=== PATIENT | male | born 1960 | race Caucasian/White ===

== ENCOUNTER 2016-08-21 11:13 | Inpatient (IN) | payer OTHER ==
[~2016-08-21] VITALS: Ht 167.6 cm; Wt 74.1 kg
[2016-08-21] MEDS ORDERED: BELLADONNA/PHENOBARBITAL TAB PO STA (12:31)
[2016-08-21] MEDS ORDERED: LIDOCAINE/MYLANTA 40 ML BTL PO STA (12:31)
[2016-08-21] MEDS ORDERED: FAMOTIDINE 20 MG TAB PO STA (12:31)
[2016-08-21] MEDS ORDERED: SOD CHLORIDE 0.9% 1,000 ML IV STA (12:31)
[2016-08-21] MEDS ORDERED: morphine 4 MG/ML VIAL IV STA (12:31)
[2016-08-21] MEDS ORDERED: ONDANSETRON 4 MG INJ IV STA (12:31)
[2016-08-21 13:08] LABS: ALANINE AMINOTRANSFERASE 35 IU/L (13-69); ALBUMIN 4.6 g/dl (3.3-4.9); ALBUMIN/GLOBULIN RATIO 1.17; ALKALINE PHOSPHATASE 104 IU/L (42-121); ANION GAP 17 (8-16); ASPARTATE AMINO TRANSFERASE 28 IU/L (15-46); BILIRUBIN,INDIRECT 0.3 mg/dl (0-1.1); BILIRUBIN,TOTAL 0.3 mg/dl (0.2-1.3); BLOOD UREA NITROGEN 20 mg/dl (7-20); CALCIUM 10.1 mg/dl (8.4-10.2); CARBON DIOXIDE 26 mmol/L (21-31); CHLORIDE 102 mmol/L (97-110); CREATININE 0.64 mg/dl (0.61-1.24); GLUCOSE 128 mg/dl (70-220); POTASSIUM 3.4 mmol/L (3.5-5.1); SODIUM 142 mmol/L (135-144); TOTAL PROTEIN 8.5 g/dl (6.1-8.1)
[2016-08-21 13:22] LABS: ADD SCAN DIFF NO
[2016-08-21 13:24] LABS: TROPONIN-I < 0.012 ng/ml (0.00-0.12)
[2016-08-21 13:25] LABS: BASOPHILS % 0.2 % (0.0-2.0); EOSINOPHILS % 0.1 % (0.0-7.0); HEMATOCRIT 50.5 % (42.0-52.0); HEMOGLOBIN 17.2 g/dl (14.0-18.0); LYMPHOCYTES # 2.1 10^3/ul (0.8-2.9); LYMPHOCYTES % 17.3 % (15.0-51.0); MEAN CORPUSCULAR HEMOGLOBIN 30.4 pg (29.0-33.0); MEAN CORPUSCULAR HGB CONC 34.1 g/dl (32.0-37.0); MEAN CORPUSCULAR VOLUME 89.2 fl (82.0-101.0); MEAN PLATELET VOLUME 10.9 fl (7.4-10.4); MONOCYTE # 0.7 10^3/ul (0.3-0.9); NEUTROPHIL # 9.3 10^3/ul (1.6-7.5); PLATELET COUNT 325 10^3/UL (140-415); RED BLOOD COUNT 5.66 10^6/ul (4.70-6.10); RED CELL DISTRIBUTION WIDTH 12.5 % (11.5-14.5); WHITE BLOOD COUNT 12.2 10^3/ul (4.8-10.8)
--- NOTE | 2016-08-21 13:36 | RADRPT ---
PROCEDURE: CT abdomen and pelvis without contrast. CLINICAL INDICATION: Abdominal pain. TECHNIQUE: CT scan of the abdomen and pelvis without contrast was performed on a multi-slice [facility]. Sagittal and coronal reformatted images were obtained from the axial source images. One or more of the following dose reduction techniques were used: - Automated exposure control. - Adjustment of the mA and/or kV according to patient size. - Use of iterative reconstruction technique. DLP 641.1 mGycm. CTDIvol 11.4 mGy COMPARISON: None FINDINGS: The lung bases are clear. There is limited evaluation of the solid viscera from the lack of IV con trast. The kidneys are symmetric bilaterally with no evidence of renal or ureteral calculi. There is no hy dronephrosis or perinephric stranding. There is normal density of the liver with no gross focal lesion or biliary ductal dilatation. The gallbladder is unremarkable without inflammation. The spleen is unremarkable without mass. The adrenal glands are within normal limits without mass. The pancreas is unremarkable without focal lesion or surrounding inflammatory changes. There is no bowel obstruction or focal bowel inflammation. The appendix is unremarkable. There is diffuse diverticulosis without diverticulitis. There is no free air or free fluid. There are no en larged lymph nodes. There is aortic atherosclerosis without aneurysmal dilatation. Degenerative changes are seen in t he lumbar spine with no acute osseous abnormality. The prostate is mildly enlarged. There is a small fat containing left inguinal hernia. IMPRESSION: No evidence of renal or ureteral calculi or hydronephrosis. No evidence of bowel obstruction or inflammation. There is no appendicitis. There is diffuse diverti culosis without diverticulitis. Atherosclerotic disease is present. Prostatic enlargement. Small fat containing left inguinal hernia. RPTAT: AA .Nieves Medina MD, MD Date Time Electronically viewed and signed by .Nieves Medina MD, MD on 08/21/2016 13:35 .J/
--- NOTE | 2016-08-21 13:38 | RADRPT ---
PROCEDURE: CT brain without contrast CLINICAL INDICATION: Nausea, dizziness TECHNIQUE: CT of the brain without contrast performed on a multidetector CT scanner, with multiplan ar reformats. One or more of the following dose reduction techniques were used: Automated exposure control, adjustment in mA and / or kV according to patient size, use of iterative reconstructive flavia hnique. CTDIvol = 45 mGy; DLP = 720 mGy-cm. COMPARISON: None available FINDINGS: There are patchy areas of hypodensity in the left cerebellar hemisphere, and a small focal hypodensi ty in the right cerebellar vermian region. These are suggestive of infarcts which may be recent. N o acute intracranial hemorrhage is identified. No extra-axial fluid collection is seen. No significant mass effect or midline shift is identified. Ventricles and sulci are within normal limits for size and configuration. Otherwise gonzales-white differentiation is preserved. Atherosclerotic calcifications of the intracranial internal carotid arteries are noted. Osseous structures are unremarkable. Noted is severe right sphenoid sinus mucosal thickening with s ecretions. IMPRESSION: 1. Patchy left cerebellar hypodensities, and small right cerebellar hypodensity suggestive of infar cts which may be recent. Further evaluation with MRI is recommended. 2. No acute intracranial hemorrhage. Results called to Dr. HERNANDEZ at 01:35 p.m., 08/21/2016. RPTAT: HH .Wilfrido Aguila MD, Date Time Electronically viewed and signed by .Wilfrido Aguila MD, on 08/21/2016 13:38 .O/
[2016-08-21] MEDS ORDERED: ASPIRIN 325 MG TAB PO ONE (14:00)
--- NOTE | 2016-08-21 14:00 | ERA ---
ER Documentation Chief Complaint Date/Time DATE: 08/21/16 TIME: 13:50 Chief Complaint NAUSEA AND VOMITING WITH MILD AP AND DIZZINESS BUT NO NEURO DEFICIT. HPI 55-year-old man brought in by with complaints of dizziness, nausea, and intermittent vomiting 2 days. Patient states he has had difficulty ambulating and has been wobbling from side to side when trying to ambulate. He complains of a posterior headache worse on the left compared to the right. Patient also states he has had some abdominal cramping with emesis. He has had nonbloody nonbilious emesis, he denies chest pain or shortness of breath, no melena or blood per rectum, no recent travel, no slurred speech, no weakness in his arms or legs. ROS All systems reviewed and are negative except as per history of present illness. Medications Home Meds No Active Prescriptions or Reported Meds Allergies Allergies: Coded Allergies: No Known Allergy (Unverified , 08/21/16) PMhx/Soc None Medical and Surgical Hx: pt denies Medical Hx, pt denies Surgical Hx History of Surgery: No Anesthesia Reaction: No Hx Neurological Disorder: No Hx Respiratory Disorders: No Hx Cardiac Disorders: No Hx Psychiatric Problems: No Hx Miscellaneous Medical Probl: No Hx Alcohol Use: No Hx Substance Use: No Hx Tobacco Use: Yes Smoking Status: Never smoker FmHx Family History: No diabetes Physical Exam Vitals Vital Signs Date Time Temp Pulse Resp B/P Pulse Ox O2 Delivery O2 Flow Rate FiO2 08/21/16 12:57 75 17 177/94 99 Room Air 08/21/16 11:21 98.0 61 20 173/78 98 Physical Exam GENERAL: Well-developed, well-nourished, nauseous HEENT: Moist mucous membranes, pink conjunctiva, no cervical spine tenderness or step-off deformities, no goiter, no jaundice or icterus, extraocular movements intact without pain. No submandibular induration, and no pharyngeal erythema NEURO: Alert and oriented 3, cranial nerves II through XII intact bilaterally, pupils equal round reactive to light, no focal deficits or facial asymmetry, sensation intact distally, extraocular movements intact without difficulty, no nystagmus, no asterixis, vmux-ca-[id number] movements within normal limits bilaterally , finger to nose normal bilaterally, rapid alternating movements intact and normal bilaterally, gait not tested, no expressive dysarthria or dysphasia CARDIAC: Regular rate and rhythm, no murmurs rubs or gallops LUNGS: Clear bilaterally no wheezing crackles or stridor ABDOMEN: Soft nontender, no guarding, no rigidity, no rebound, no psoas sign no obturator sign. Normoactive bowel sounds SKIN: Warm and dry to touch, no abrasions, contusions, or hematomas, no lacerations, no ecchymosis, no target lesions, and without ulcers EXTREMITIES: No clubbing cyanosis or edema, calves are bilaterally symmetrical, no Homans sign, no popliteal cord sign. Distal pulses equal and bilateral PSYCH: Normal affect without agitation or irritability Result Diagram: 08/21/16 1231 08/21/16 1231 Results 24 hrs Laboratory Tests Test 08/21/16 12:31 White Blood Count 12.210^3/ul Red Blood Count 5.6610^6/ul Hemoglobin 17.2g/dl Hematocrit 50.5% Mean Corpuscular Volume 89.2fl Mean Corpuscular Hemoglobin 30.4pg Mean Corpuscular Hemoglobin Concent 34.1g/dl Red Cell Distribution Width 12.5% Platelet Count 38840^3/UL Mean Platelet Volume 10.9fl Neutrophils % 76.0% Lymphocytes % 17.3% Monocytes % 6.0% Eosinophils % 0.1% Basophils % 0.2% Nucleated Red Blood Cells % 0.0/100WBC Neutrophils # 9.310^3/ul Lymphocytes # 2.110^3/ul Monocytes # 0.710^3/ul Eosinophils # 0.010^3/ul Basophils # 0.010^3/ul Nucleated Red Blood Cells # 0.010^3/ul Prothrombin Time 12.4Sec Prothrombin Time Ratio 1.0 INR International Normalized Ratio 0.92 Sodium Level 142mmol/L Potassium Level 3.4mmol/L Chloride Level 102mmol/L Carbon Dioxide Level 26mmol/L Anion Gap 17 Blood Urea Nitrogen 20mg/dl Creatinine 0.64mg/dl Glucose Level 128mg/dl Calcium Level 10.1mg/dl Total Bilirubin 0.3mg/dl Direct Bilirubin 0.00mg/dl Indirect Bilirubin 0.3mg/dl Aspartate Amino Transf (AST/SGOT) 28IU/L Alanine Aminotransferase (ALT/SGPT) 35IU/L Alkaline Phosphatase 104IU/L Troponin I < 0.012ng/ml Total Protein 8.5g/dl Albumin 4.6g/dl Globulin 3.90g/dl Albumin/Globulin Ratio 1.17 Lipase 29U/L Current Medications Medications (Trade) Dose Ordered Sig/Kellie Route PRN Reason Start Time Stop Time Status Last Admin Dose Admin Sodium Chloride (NS) 1,000 ml @ 1,000 mls/hr Q1H STAT IV 08/21/16 12:31 08/21/16 13:30 DC 08/21/16 12:46 Morphine Sulfate (morphine) 4 mg ONCE STAT IV 08/21/16 12:31 08/21/16 12:33 DC 08/21/16 12:47 Ondansetron HCl (Zofran Inj) 4 mg ONCE STAT IV 08/21/16 12:31 08/21/16 12:33 DC 08/21/16 12:47 Famotidine (Pepcid) 40 mg ONCE STAT PO 08/21/16 12:31 08/21/16 12:33 DC 08/21/16 12:47 Miscellaneous Medication (Gi Cocktail (2)) 40 ml ONCE STAT PO 08/21/16 12:31 08/21/16 12:33 DC 08/21/16 12:50 Belladonna/ Phenobarbital () 2 tab ONCE STAT PO 08/21/16 12:31 08/21/16 12:33 DC 08/21/16 12:47 Aspirin 325 mg 325 mg ONCE ONCE PO 08/21/16 14:00 08/21/16 14:01 DC 08/21/16 14:20 Iohexol 100 ml @ ud STK-MED ONCE .ROUTE 08/21/16 14:23 08/21/16 14:24 DC Sodium Chloride (NS) 100 ml @ ud STK-MED ONCE .ROUTE 08/21/16 14:23 08/21/16 14:24 DC Procedures/MDM IV line established patient placed on nuclear monitoring technician rhythm strip revealed a sinus rhythm at about 70 bpm with upright P and T waves. Patient was afebrile. EKG performed, read by me revealed a sinus bradycardia 58 bpm, normal axis, narrow QRS complex, no concerning ST elevations or depressions noted. I administered 1 L normal saline intravenously, morphine 4 mg IV, Zofran 4 mg IV , GI cocktail 50 cc p.o., famotidine 40 mg p.o. with improvement in his symptoms. CT scan of the abdomen and pelvis was performed, given the patient's symptoms. There was no acute inflammatory or infectious pathology noted, vascular structures were unremarkable. Please refer radiologist's dictation for full report. CT scan of the brain was performed revealing acute versus subacute bilateral cerebellar infarcts left greater than right, no acute bleed mass or shift. Given the time of symptom onset patient is not a TPA candidate. Tele-neurologist consultation has been ordered. Recommendation was for CT angiogram of the neck. CBC was unremarkable, electrolytes revealed hypokalemia 3.4, liver function tests are normal, troponin was negative. Patient will be admitted to telemetry setting for continued medical management and neurology consultation. CTA of the neck was unremarkable, no carotid artery or vertebral artery occlusion. Patient was given aspirin 325 mg p.o. for neuroprotective measures. Departure Diagnosis: Primary Impression: Cerebellar stroke Additional Impressions: Ataxic gait Headache Qualified Code: G44.1 - Other vascular headache Condition: TATA Sahu MD August 21, 2016 14:00
[2016-08-21 14:13] LABS: INR 0.92; PROTIME 12.4 Sec (12.2-14.2)
[2016-08-21] MEDS ORDERED: IOHEXOL 100 ML ONE (14:23)
[2016-08-21] MEDS ORDERED: SOD CHLORIDE 0.9% 100 ML ONE (14:23)
--- NOTE | 2016-08-21 15:05 | CONS ---
DATE OF ADMISSION: 08/21/2016 DATE OF CONSULTATION: 08/21/2016 REASON FOR CONSULTATION: I was asked to see the patient for concern of stroke. HISTORY OF PRESENT ILLNESS: The patient arrived with 2 days' symptoms of ataxia, nausea and vomitin g. The patient had a noncontrast head CT which showed a left cerebellar infarction as well as devel oping infarcts in the anterior circulation of the subcortical matter. The patient is a poor histori an. There was no costume rental clerk present. The patient is not known to have any prior strokes. It is n ot clear why the patient came in today as opposed to the prior 2 days when he had symptoms. He is n ot known to have had any recent procedures, trauma, or operations, not clear if the patient was on a ntiplatelets. I was able to evaluate the patient with NIH stroke scale score. The patient was aler t. He is oriented. He is able to follow commands. He has no evidence of slurred speech. He does have some left-sided ataxia. The patient's sensation is grossly intact. The patient was not able t o be walked given the fact that there was no other personnel present during my assessment. I reviewed the patient's noncontrast head CT, demonstrated multifocal multivascular distribution for med infarcts on his CT scan. There was no posterior fossa mass effect, nor was there any concern fo r encroachment upon the fourth ventricle. ASSESSMENT: This is a gentleman who likely has vertebrobasilar disease that may be embolic in natur e. He should have an echocardiogram with a bubble study. He should have a CT angiogram to assess t he patency of his vertebrobasilar vasculature. The patient should be kept on telemetry to look for a source of cardiac emboli. The patient should be given aspirin. He should be hydrated. His blood pressure should be allowed to persist elevated unless it exceeds 220/110. The patient should have local neurologic consultation. If the patient has substantial findings of vertebrobasilar disease o n his medical coding manager circulation, he may be better served at a comprehensive stroke center. I have reported my findings and recommendations back to the emergency department team. Dictated By: DOLORES ROY CM/KENDALL Conf#: [id number] DID#: [id number]
--- NOTE | 2016-08-21 15:07 | RADRPT ---
PROCEDURE: CT angiogram neck CLINICAL INDICATION: Nausea, dizziness, cerebellar infarcts TECHNIQUE: CT angiogram of the brain, and neck was performed on a multidetector CT scanner. The chuck dy was reviewed on a [employer] PACS/3D workstation with 3D-MIP reformations. 75 cc Omnipaque 350 i ntravenous contrast were administered. One or more of the following dose reduction techniques were used: Automated exposure control, adjustment in mA and / or kV according to patient size, use of ite rative reconstructive technique. CTDIvol = 20 mGy and DLP = 538 mGy-cm. COMPARISON: CT brain 08/21/2016 FINDINGS: CT ANGIOGRAM NECK: Calcified plaques present at the great vessel origins without occlusion or signif icant stenosis identified. Noted is a common origin of the brachiocephalic, left common carotid art eries, normal variation. The bilateral common carotid arteries are patent. The bilateral carotid b ulbs - bifurcations are patent with minimal calcified plaque at the left carotid bulb and at the rig ht external carotid artery origin. There is calcified plaque at the proximal left internal carotid artery without occlusion, or stenosis by NASCET criteria identified and the rest of the bilateral in ternal carotid arteries are patent. The proximal bilateral vertebral arteries are tortuous without occlusion or significant stenosis identified. No dissection is identified. The bilateral intracranial internal carotid arteries, and imaged proximal basilar artery are patent. Also seen are atherosclerotic calcifications at the bilateral cavernous internal carotid arteries without occlusion or significant stenosis seen. IMPRESSION: No occlusion or significant stenosis identified. Specifically, no occlusion or significant stenosis of the vertebral arteries, or visualized proximal basilar artery. RPTAT: .Wilfrido Aguila MD, MD Date Time Electronically viewed and signed by .Wilfrido Aguila MD, MD on 08/21/2016 15:06 .O/
[2016-08-21 16:12] VITALS: Ht 167.6 cm; Wt 74.1 kg
[2016-08-21 16:23] VITALS: PULSE 67
[2016-08-21 18:26] VITALS: BP 152/74; PULSE 61; RESP 19
[2016-08-21] MEDS ORDERED: NACL 0.9% 3 ML SYG IV SCH (19:30)
[2016-08-21] MEDS ORDERED: ACETAMINOPHEN 325 MG TAB PO PRN (19:30)
[2016-08-21] MEDS ORDERED: ZOLPIDEM 5 MG TAB PO PRN (19:30)
[2016-08-21] MEDS ORDERED: ONDANSETRON 4 MG INJ IV PRN (19:30)
[2016-08-21] MEDS ORDERED: hydrALAzine 20 MG INJ IV PRN (19:30)
[2016-08-21] MEDS ORDERED: morphine 2 MG INJ IV PRN (19:30)
[2016-08-21] MEDS ORDERED: HYDROCODONE/APAP (5/325) TAB PO PRN (19:30)
[2016-08-21] MEDS ORDERED: DOCUSATE SODIUM 100 MG CAP PO PRN (19:30)
--- NOTE | 2016-08-21 19:31 | HP ---
DATE OF ADMISSION: 08/21/2016 CHIEF COMPLAINT: Nausea, vomiting, dizziness. HISTORY OF PRESENT ILLNESS: The patient is a 55-year-old male with no medical history. The patient presented with 2 days of worsening nausea with dizziness. The patient is unable to ambulate second uriah to his dizziness. He has no history of any cardiac issues or strokes in the past. In the ED, t he patient had a brain CT that showed a right cerebellar infarct. The patient was seen by teleneuro logy and they recommended a neck CTA, which showed no occlusion or significant stenosis. The patien t has no other complaints at this time. PAST MEDICAL HISTORY: Negative. The patient does not see any physicians. PAST SURGICAL HISTORY: Denies. HOME MEDICATIONS: None. ALLERGIES: NO KNOWN DRUG ALLERGIES. FAMILY HISTORY: Diabetes. SOCIAL HISTORY: Denies any alcohol or drug abuse. He does smoke several cigarettes a day. REVIEW OF SYSTEMS: A 12-point review of systems negative except that stated in HPI. PHYSICAL EXAMINATION: VITAL SIGNS: Temperature is 98.2, pulse 61, respirations 19, BP is ____/74, saturation 96% on room air. GENERAL: No acute distress, alert and oriented. HEENT: Normocephalic, atraumatic. LUNGS: Clear to auscultation. CARDIOVASCULAR: Regular rate and rhythm. ABDOMEN: Nondistended, nontender, soft. EXTREMITIES: No clubbing, cyanosis, or edema. NEUROLOGIC: No focal weakness. Wefsaj-hh-kefq test is slightly diminished on the right side. Heel -to-becker is also slightly diminished on the right side. LABORATORY DATA: White count is 12.2, hemoglobin 13.2, platelets are 325. Chemistry: Sodium is 14 2, potassium is 0.4, anion gap is 17, alkaline phosphatase is 104, AST 28, ALT 35. Lipase 29. INR is 1.0. DIAGNOSTICS: 1. Brain CT shows right-sided cerebellar infarct. 2. Abdominal pelvis CT was done and showed no acute findings, prostate enlargement, small fat conta ining left inguinal hernia. 3. CTA neck showed no occlusion or significant stenosis. Specifically, no occlusion or stenosis in the vertebral arteries or visualized proximal basilar artery. ASSESSMENT AND PLAN: 1. Right-sided cerebellar infarct. This occurred approximately 2 days ago according to the patient 's onset of symptoms of dizziness and nausea. The patient has no history of strokes in the past. N kayleigh CTA shows no significant occlusion. Will obtain a 2D echo and carotid ultrasound to look for an y potential source of emboli. The patient has no atrial fibrillation noted on arrival. We will sta rt the patient aspirin and Lipitor. Will get a neurology consultation in a.m. Will get a PT evalua tion as the patient is unable to ambulate now secondary to dizziness. We will check A1c and LDL. 2. Mild hypokalemia, replete. 3. Leukocytosis, likely reactive. No indication for antibiotics at this time. 4. Prophylaxis, Lovenox. Dictated By: ARNEL CLARK MD BS/NTS Conf#: [id number] DID#: [id number]
[2016-08-21 19:54] VITALS: BP 141/88; RESP 20
[2016-08-21 20:00] VITALS: PULSE 62
--- NOTE | 2016-08-21 20:40 | RADRPT ---
PROCEDURE: Carotid ultrasound CLINICAL INDICATION: Stroke, carotid bruits TECHNIQUE: Frankel scale, color doppler, spectral doppler ultrasound of the bilateral carotid and jeet tebral arteries. This study indirectly references the measurement of the distal ICA diameter as the denominator for s tenosis measurement. Validated velocity measurements with angiographic measurements, velocity criter ia are extrapolated from diameter data as defined by: *Cartoid artery stenosis: frankel-scale and Doppl er US diagnosis. Society of Radiologists in Ultrasound Consensus Conference. Radiology 2003; 229: 34 0-346. U Consensus Conference Criteria for the Diagnosis of Carotid Artery Stenosis* Degree of Stenosis, % ICA PSV, cm/sec Plaque Estimate, % ICA/CCA PSV Ratio Normal <125 None <2.0 <50 <125 <50 <2.0 50 69 125-230 >50 2.0-4.0 >70 but less than near occlusion >230 >50 <4.0 Near occlusion High, low, or undetectable Visible Variable Total occlusion Undetectable Visible, no detectable lumen Not applicable COMPARISON: CT angiography extracranial circulation 08/21/2016 FINDINGS: Location Right CCA84 cm/sec Prox ICA 56 cm/sec Mid ICA80 cm/sec Dist WPQ725 cm/sec UWK632 cm/sec Left CCA83 cm/sec Prox ICA 75 cm/sec Mid ICA73 cm/sec Dist ICA70 cm/sec [id number] cm/sec Plaque burden: No significant plaque is seen. Antegrade flow is seen within the vertebral arteries bilaterally. IMPRESSION: No evidence of a hemodynamically significant carotid stenosis. RPTAT: AADD .Vishnu Guajardo MD, MD Date Time Electronically viewed and signed by .Vishnu Guajardo MD, on 08/21/2016 20:39 .B/
[2016-08-21] MEDS: ATORVASTATIN 80 MG TAB PO SCH (21:18)
[2016-08-21 23:54] VITALS: BP 127/68; RESP 20
[2016-08-22] VITALS (11 sets, daily range): BP systolic 115–144; BP diastolic 70–93; PULSE 52–60; RESP 18–20
[2016-08-22 07:14] LABS: ADD SCAN DIFF NO
[2016-08-22 07:18] LABS: BASOPHILS % 0.4 % (0.0-2.0); EOSINOPHILS # 0.1 10^3/ul (0.0-0.5); EOSINOPHILS % 0.9 % (0.0-7.0); HEMATOCRIT 45.8 % (42.0-52.0); HEMOGLOBIN 15.3 g/dl (14.0-18.0); LYMPHOCYTES # 3.4 10^3/ul (0.8-2.9); MEAN CORPUSCULAR HEMOGLOBIN 30.4 pg (29.0-33.0); MEAN CORPUSCULAR HGB CONC 33.4 g/dl (32.0-37.0); MEAN CORPUSCULAR VOLUME 90.9 fl (82.0-101.0); MEAN PLATELET VOLUME 10.2 fl (7.4-10.4); MONOCYTE # 0.9 10^3/ul (0.3-0.9); MONOCYTES % 9.1 % (0.0-11.0); NEUTROPHIL # 5.2 10^3/ul (1.6-7.5); NEUTROPHILS % 54.2 % (39.0-77.0); PLATELET COUNT 279 10^3/UL (140-415); RED BLOOD COUNT 5.04 10^6/ul (4.70-6.10); RED CELL DISTRIBUTION WIDTH 12.8 % (11.5-14.5); WHITE BLOOD COUNT 9.6 10^3/ul (4.8-10.8)
[2016-08-22 07:34] LABS: POTASSIUM 3.3 mmol/L (3.5-5.1)
[2016-08-22 07:37] LABS: CREATININE 0.8 mg/dl (0.61-1.24); PHOSPHORUS 3.2 mg/dl (2.5-4.9)
[2016-08-22 07:38] LABS: CHOL/HDL RATIO 3.8 RATIO; MAGNESIUM 2.4 mg/dl (1.7-2.5)
[2016-08-22] MEDS: ASPIRIN (EC) 325 MG TAB PO SCH (08:42)
[2016-08-22] MEDS: AMLODIPINE 5 MG TAB PO SCH (08:43)
[2016-08-22] MEDS: ENOXAPARIN 40 MG/0.4 ML SYG SC SCH (08:44)
--- NOTE | 2016-08-22 10:59 | RADRPT ---
Echocardiogram Report Patient Name: RUTH KESSLER Gender: Male Date: 1960 Study Date: 22-Aug-2016 Director Of Program Management: Analia Quispe [facility] Location: [id number] Ref. Physician: ARNEL CLARK Quality: Good Procedures: Transthoracic echocardiogram with complete 2D, M-Mode, and doppler examination. Indications: Cerebrovascular Accident. 2D/M Mode Doppler Measurement Value Normal Ranges Measurement Value Normal Ranges LVIDd 2D 5.0 3.5 - 5.6 cm AV Peak Chris 1.3 m/sec LVIDs 2D 2.5 2.1 - 4.1 cm AV Peak PG 7.0 mmHg FS 2D 50.8 % LVOT Peak Chris 1.0 m/sec LVPWd 2D 0.7 0.6 - 1.1 cm LVOT Peak PG 4.0 mmHg IVSd 2D 0.9 0.6 - 1.1 cm MV E Peak Chris 0.5 m/sec IVS/LVPW 2D 1.2 MV A Peak Chris 0.6 m/sec AoR Diam 2D 3.4 2.0 - 3.7 cm MV E/A 0.9 LA/Ao 2D 1 0 - 1 MV Decel Time 278 msec EDV 2D 125.0 cm3 MV E/A 0.9 ESV 2D 14.9 cm3 TR Peak Chris 1.9 m/sec LA Dimen 2D 3.1 2.3 - 4.0 cm TR Peak PG 15.0 mmHg RVSP 18.0 mmHg Findings Left Ventricle: Normal left ventricular systolic function. Normal left ventricular cavity size. Normal left ventricular wall thickness. Ejection fraction is visually estimated at 55 %. Tissue Doppler/Mitral Doppler indices are within normal limits. Right Ventricle: Normal right ventricular size. Normal right ventricular systolic function. Left Atrium: The left atrium is normal in size. Right Atrium: The right atrium is normal in size. Mitral Valve: Normal appearance and function of the mitral valve with trace physiologic regurgitation. Aortic Valve: Normal appearance of the aortic valve. No significant aortic stenosis or insufficiency. Tricuspid Valve: Normal appearance of the tricuspid valve. Estimated peak PA systolic pressure 18 mmHg. There is trace tricuspid regurgitation. Pulmonic Valve: Normal pulmonic valve appearance. Pericardium: Normal pericardium with no significant pericardial effusion. Aorta: Normal aortic root. IVC: Normal size and normal respiratory collapse consistent with normal right atrial pressure. Conclusions 1.Normal left ventricular systolic function. Normal left ventricular cavity size. Normal left ventricular wall thickness. Ejection fraction is visually estimated at 55 %. Tissue Doppler/Mitral Doppler indices are within normal limits. 2.No significant valvular stenosis or regurgitation seen. 3.Estimated peak PA systolic pressure 18 mmHg based on RA pressure of 3 mmHg. Electronically Signed By: Dwayne Turcios 22-Aug-2016 10:58:32 -1100 Patient Name: RUTH KESSLER Study Date: 22-Aug-2016 [id number]
[2016-08-22] MEDS ORDERED: POTASSIUM CHLORIDE (SR) 20 MEQ TAB PO STA (13:40)
--- NOTE | 2016-08-22 15:45 | PN ---
Date/Time of Note Date/Time of Note DATE: 08/22/16 TIME: 15:40 Assessment/Plan VTE Prophylaxis VTE Prophylaxis Intervention: LMWH Lines/Catheters IV Catheter Type (from [facility]): Saline Lock Assessment/Plan Assessment/Plan 1. Right-sided cerebellar infarct. This occurred approximately 2 days ago according to the patient's onset of symptoms of dizziness and nausea. Neck CTA shows no significant occlusion / Patient also needs CTA brain and MRI Local Neurology consult with Dr Florentino DEL CID venous dopplers to r/o DVT PT eval for ?acute rehab vs HHPT 2. Mild hypokalemia, replete. 3. Leukocytosis, likely reactive. No indication for antibiotics at this time. 4. Prophylaxis, Lovenox. Subjective 24 Hr Interval Summary Free Text/Dictation Patient seen and examined. Patient still has a lot of dizziness when attempting ambulation and with standing. He however denies headaches or chest pain. Exam/Review of Systems Vital Signs Vitals Vital Signs Date Time Temp Pulse Resp B/P Pulse Ox O2 Delivery O2 Flow Rate FiO2 08/22/16 13:01 59 08/22/16 11:54 98.0 18 135/70 98 08/21/16 18:26 Room Air Intake and Output 08/21/16 08/21/16 08/22/16 14:59 22:59 06:59 Intake Total 1000 ml 550 ml Balance 1000 ml 550 ml Exam GENERAL: No acute distress, alert and oriented. HEENT: Normocephalic, atraumatic. LUNGS: Clear to auscultation. CARDIOVASCULAR: Regular rate and rhythm. ABDOMEN: Nondistended, nontender, soft. EXTREMITIES: No clubbing, cyanosis, or edema. NEUROLOGIC: No gross focal weakness. Results Result Diagram: 08/22/16 0633 08/22/16 0633 Results 24 hrs Laboratory Tests Test 08/22/16 06:33 White Blood Count 9.6 # Red Blood Count 5.04 Hemoglobin 15.3 Hematocrit 45.8 Mean Corpuscular Volume 90.9 Mean Corpuscular Hemoglobin 30.4 Mean Corpuscular Hemoglobin Concent 33.4 Red Cell Distribution Width 12.8 Platelet Count 279 Mean Platelet Volume 10.2 Neutrophils % 54.2 Lymphocytes % 35.0 Monocytes % 9.1 Eosinophils % 0.9 Basophils % 0.4 Nucleated Red Blood Cells % 0.0 Neutrophils # 5.2 Lymphocytes # 3.4 H Monocytes # 0.9 Eosinophils # 0.1 Basophils # 0.0 Nucleated Red Blood Cells # 0.0 Sodium Level 140 Potassium Level 3.3 L Chloride Level 104 Carbon Dioxide Level 26 Anion Gap 13 Blood Urea Nitrogen 17 Creatinine 0.80 Glucose Level 89 Hemoglobin A1c 5.6 Calcium Level 9.0 Phosphorus Level 3.2 Magnesium Level 2.4 Triglycerides Level 106 Cholesterol Level 175 LDL Cholesterol, Calculated 109 HDL Cholesterol 45 Cholesterol/HDL Ratio 3.8 Medications Medications Current Medications Ondansetron HCl (Zofran Inj) 4 mg Q6H PRN IV NAUSEA AND/OR VOMITING; Start at 19:30 Acetaminophen (Tylenol Tab) 650 mg Q6H PRN PO PAIN LEVEL 1-3 OR FEVER; Start at 19:30 Acetaminophen/ Hydrocodone Bitart ([place] (5/325)) 1 tab Q6H PRN PO MODERATE PAIN LEVEL 4-6; Start 08/21/16 at 19:30 Morphine Sulfate (morphine) 2 mg Q4H PRN IV SEVERE PAIN LEVEL 7-10; Start 08/21 at 19:30 Docusate Sodium (Colace) 100 mg Q12H PRN PO CONSTIPATION; Start 08/21/16 at 19: 30 Zolpidem Tartrate (Ambien) 5 mg QHS PRN PO SLEEP; Start 08/21/16 at 19:30 Enoxaparin Sodium (Lovenox) 40 mg DAILY SC Last administered on 08/22/16 08:44 ; Admin Dose 40 MG; Start 08/22/16 at 09:00 Aspirin (Ecotrin) 325 mg DAILY PO Last administered on 08/22/16 08:42; Admin Dose 325 MG; Start 08/22/16 at 09:00 Atorvastatin Calcium (Lipitor) 80 mg HS PO Last administered on 08/21/16 21:18 ; Admin Dose 80 MG; Start 08/21/16 at 21:00 Amlodipine Besylate (Norvasc) 5 mg DAILY PO Last administered on 08/22/16 08: 43; Admin Dose 5 MG; Start 08/22/16 at 09:00 Hydralazine HCl (Apresoline) 10 mg Q4H PRN IV SBP>180; Start 08/21/16 at 19:30 Procedures Procedures PROCEDURE: CT angiogram neck CLINICAL INDICATION: Nausea, dizziness, cerebellar infarcts TECHNIQUE: CT angiogram of the brain, and neck was performed on a multidetector CT scanner. The study was reviewed on a [employer] PACS/3D workstation with 3D-MIP reformations. 75 cc Omnipaque 350 intravenous contrast were administered. One or more of the following dose reduction techniques were used: Automated exposure control, adjustment in mA and / or kV according to patient size, use of iterative reconstructive technique. CTDIvol = 20 mGy and DLP = 538 mGy-cm. COMPARISON: CT brain 08/21/2016 FINDINGS: CT ANGIOGRAM NECK: Calcified plaques present at the great vessel origins without occlusion or significant stenosis identified. Noted is a common origin of the brachiocephalic, left common carotid arteries, normal variation. The bilateral common carotid arteries are patent. The bilateral carotid bulbs - bifurcations are patent with minimal calcified plaque at the left carotid bulb and at the right external carotid artery origin. There is calcified plaque at the proximal left internal carotid artery without occlusion, or stenosis by NASCET criteria identified and the rest of the bilateral internal carotid arteries are patent. The proximal bilateral vertebral arteries are tortuous without occlusion or significant stenosis identified. No dissection is identified. The bilateral intracranial internal carotid arteries, and imaged proximal basilar artery are patent. Also seen are atherosclerotic calcifications at the bilateral cavernous internal carotid arteries without occlusion or significant stenosis seen. IMPRESSION: No occlusion or significant stenosis identified. Specifically, no occlusion or significant stenosis of the vertebral arteries, or visualized proximal basilar artery. RPTAT: HH .Wilfrido Aguila MD, MD Date Time Electronically viewed and signed by .Wilfrido Aguila MD, MD on 08/21/2016 15:06 .O/ CC: TATA HERNANDEZ MD ALAN SCALES August 22, 2016 15:45
--- NOTE | 2016-08-22 16:13 | RADRPT ---
PROCEDURE: US bilateral lower extremity veins. CLINICAL INDICATION: Bilateral leg pain and swelling. TECHNIQUE: Multiple longitudinal and transverse images of the bilateral lower extremity veins were obtained with gonzales scale and color Doppler imaging. The common femoral vein, femoral vein, and popl iteal vein were evaluated. 2D grayscale measurements with compression sonography, color Doppler, and pulsed Doppler with augmentation. COMPARISON: No prior studies are available for comparison. FINDINGS: The bilateral common femoral, femoral and popliteal veins are normally compressible throughout. Col or flow demonstrates normal filling of the vessels. Normal waveforms are visualized and there is no rmal response to augmentation. IMPRESSION: 1. No evidence of deep vein thrombosis involving either lower extremity. RPTAT: QQ .Raul Gandhi MD, MD Date Time Electronically viewed and signed by .Raul Gandhi MD, on 08/22/2016 16:13 .R/
[2016-08-22] MEDS: ATORVASTATIN 80 MG TAB PO SCH (21:31)
[2016-08-22] MEDS ORDERED: IOHEXOL 100 ML ONE (21:49)
[2016-08-22] MEDS ORDERED: SOD CHLORIDE 0.9% 100 ML ONE (21:49)
--- NOTE | 2016-08-22 22:22 | RADRPT ---
PROCEDURE: CT Head without. CLINICAL INDICATION: Bilateral cerebellar stroke, evaluate for obstructive hydrocephalus. TECHNIQUE: The study was performed utilizing a multi-slice, multidetector CT scanner. Direct spira l 1 mm axial sections were obtained through the head without the use of intravenous contrast materia l. 1 or more of the following dose reduction techniques were utilized: Automated exposure control, adjustment of the mA and/or kV according to patient's size, iterative reconstruction technique. Co dimitri and sagittal reformations were obtained. The images were reviewed on a PACS workstation. RADIATION DOSE: CTDIvol: 40.3 mGyDLP: 873.4 mGy-cm COMPARISON: 08/21/2016 FINDINGS: There is no intracranial hemorrhage, extra-axial fluid collection, mass lesion, midline shift or hyd rocephalus. There is redemonstration of patchy hypodensities involving the left inferior cerebellar hemisphere, consistent with cerebellar infarct. There is no evidence of hemorrhagic conversion at this time. There is stable appearance of well circumscribed hypodensity involving the paramedian ri ght cerebellar hemisphere, suggestive of small lacunar infarct in this region. The third and fourth ventricles are normal in size. The basal cisterns are patent. The ventricles, sulci and cisterns are within normal limits. The white matter is unremarkable. The supratentorial gonzales-white matter d ifferentiation is preserved. The midline structures are intact. The orbits, calvarium and extracra nial soft tissues are normal in appearance. The visualized paranasal sinuses, mastoid air cells and middle ear cavities are normally aerated. IMPRESSION: 1. Redemonstration of patchy hypodensity involving the left inferior cerebellar hemisphere and righ t paramedian cerebellar hemisphere, consistent with given patient history of cerebellar infarct. 2. The lateral, third and fourth ventricles are normal in size without evidence of obstructive hydr ocephalus. 3. No acute intracranial abnormality. No intracranial hemorrhage, extra-axial fluid collection, ma ss lesion or hydrocephalous. RPTAT: HGAS .Baldomero Simental MD, Date Time Electronically viewed and signed by .Baldomero Simental MD, MD on 08/22/2016 22:22 .S/
--- NOTE | 2016-08-22 23:27 | RADRPT ---
PROCEDURE: MR Brain without contrast. CLINICAL INDICATION: 55-year-old male with cerebellar stroke. TECHNIQUE: An MRI of the brain was performed without contrast utilizing the following sequences: Sagittal T1 weighted, sagittal FLAIR, axial T1, axial FLAIR, axial T2 weighted, axial diffusion weig hted, axial ADC mapping. Images were reviewed on a PACS workstation. COMPARISON: CT head 08/22/2016, 08/21/2016 FINDINGS: Diffusion weighted sequences demonstrate demonstrate diffusion restriction involving the left inferi or cerebellar hemisphere measuring 3.3 x 2.5 cm (axial series image 7). There is also diffusion res triction in the paramedian right cerebellar vermis measuring 12 x 10 mm (axial series image 8) and t he posterior paramedian right cerebellar hemisphere measuring 4 and 3 mm respectively (axial series image 7-8). The brainstem is normal in appearance. No supratentorial infarcts are identified. No evidence of hemorrhagic conversion at this time. There is no intracranial hemorrhage, extra-axial f luid collection, mass lesion, midline shift or hydrocephalous. There is baseline of mild prominence of the cerebral sulci, lateral and third ventricles. The basal cisterns are patent. There are mild punctate foci of periventricular and subcortical white matter lesions, likely related to early micr oangiopathic changes. There is a mild amount of edema involving the infarcts in the bilateral cerebellar hemispheres. Normal flow voids are visible the proximal intracranial arteries and dural sinuses, indicating patency. The midline structures are intact. There are moderate inflammatory changes of the right sphenoid sinus and mild inflammatory changes of the bilateral ethmoid air cells. The mastoid air cells and middle ear cavities are normally aerate d. The orbits, calvarium and extracranial soft tissues are normal in appearance. The cerebelloponti ne angles are normal. No evidence of internal acoustic canal or cerebellopontine angle mass. IMPRESSION: 1. Acute/recent infarct involving the left inferior cerebellar hemisphere, paramedian right cerebel lar vermis and punctate infarcts in the peripheral paramedian right cerebellar hemisphere. 2. No intracranial hemorrhage, mass lesion or hydrocephalous. 3. Baseline of mild peripheral and central cerebral volume loss. 4. Mild periventricular and subcortical white matter lesions, likely related to chronic microangiop athic changes. RPTAT: HGAS .Baldomero Simental MD, MD Date Time Electronically viewed and signed by .Baldomero Simental MD, MD on 08/22/2016 23:27 .S/
[2016-08-23] VITALS (13 sets, daily range): BP systolic 110–151; BP diastolic 61–93; PULSE 58–73; RESP 17–19
[2016-08-23 06:49] LABS: ADD SCAN DIFF NO
[2016-08-23 06:53] LABS: BASOPHIL # 0.1 10^3/ul (0.0-0.1); BASOPHILS % 0.7 % (0.0-2.0); EOSINOPHILS # 0.1 10^3/ul (0.0-0.5); EOSINOPHILS % 1.2 % (0.0-7.0); HEMATOCRIT 47.8 % (42.0-52.0); HEMOGLOBIN 16.2 g/dl (14.0-18.0); LYMPHOCYTES # 3.3 10^3/ul (0.8-2.9); LYMPHOCYTES % 38.6 % (15.0-51.0); MEAN CORPUSCULAR HEMOGLOBIN 30.8 pg (29.0-33.0); MEAN CORPUSCULAR HGB CONC 33.9 g/dl (32.0-37.0); MEAN CORPUSCULAR VOLUME 90.9 fl (82.0-101.0); MEAN PLATELET VOLUME 10.1 fl (7.4-10.4); MONOCYTE # 0.7 10^3/ul (0.3-0.9); MONOCYTES % 8.2 % (0.0-11.0); NEUTROPHIL # 4.3 10^3/ul (1.6-7.5); NEUTROPHILS % 50.8 % (39.0-77.0); PLATELET COUNT 301 10^3/UL (140-415); RED BLOOD COUNT 5.26 10^6/ul (4.70-6.10); RED CELL DISTRIBUTION WIDTH 12.3 % (11.5-14.5); WHITE BLOOD COUNT 8.5 10^3/ul (4.8-10.8)
[2016-08-23 07:25] LABS: CALCIUM 9.2 mg/dl (8.4-10.2); CREATININE 0.71 mg/dl (0.61-1.24); MAGNESIUM 2.2 mg/dl (1.7-2.5); POTASSIUM 4.2 mmol/L (3.5-5.1)
--- NOTE | 2016-08-23 08:29 | RADRPT ---
PROCEDURE: CTA Brain. CLINICAL INDICATION: Stroke TECHNIQUE: The study was performed utilizing a multi-slice multidetector CT scanner. Direct spiral 0.65 mm axial sections were obtained through the intracranial vasculature with the use of 100 cc of Omnipaque-350 nonionic intravenous contrast material. Coronal and sagittal MPRs as well as maximal intensity projection reformations were obtained. 3-D MIP images were also reviewed. The images were reviewed on a PACS workstation. The CTDIvol is 54.25, and 30.99 mGy and the DLP is 707.14 mGycm. One or more of the following dose reduction techniques were used: Automated exposure control Adjustment of the mA and/or kV according to patient size. Use of iterative reconstruction technique. COMPARISON: CTA neck 08/21/2016. FINDINGS: Mild calcific plaques are seen involving the supraclinoid ICA bilaterally with no hemodynamically si gnificant stenosis. The anterior cerebral and middle cerebral arteries are patent and normal in jordan mallorie. There is occlusion of the left posterior inferior cerebellar artery approximately 1.3 cm distal to its origin. The vertebral arteries, basilar artery, superior cerebellar arteries, and posterior cerebral arteries are normal in appearance. There is approximately 1.5 x 1.6 mm triangular-shaped outpouching off of the posterior aspect of the right ICA terminus likely representing infundibulum. No vascular malformation is seen. IMPRESSION: 1. 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 2. No significant atherosclerotic plaque in the posterior circulation arteries. No dissection. 3. Minimal atherosclerotic calcifications of bilateral supraclinoid ICA with no hemodynamically sig nificant stenosis. 4. Tiny outpouching off the right posterior supraclinoid ICA most consistent with an infundibulum. RPTAT: BB .Bushra Mtz MD, MD Date Time Electronically viewed and signed by .Bushra Mtz MD, MD on 08/23/2016 08:29 .O/
[2016-08-23] MEDS: ASPIRIN (EC) 325 MG TAB PO SCH (09:33)
[2016-08-23] MEDS: AMLODIPINE 5 MG TAB PO SCH (09:33)
[2016-08-23] MEDS: ENOXAPARIN 40 MG/0.4 ML SYG SC SCH (09:37)
--- NOTE | 2016-08-23 10:51 | CONS ---
Date/Time of Note Date/Time of Note DATE: 08/23/16 TIME: 10:38 Assessment/Plan Assessment/Plan Chief Complaint/Hosp Course 55 year old male with bilateral cerebellar stroke Day 4 from onset of symptoms, no evidence of obstructive hydrocephalus. MRI Brain w/o contrast: acute infarct left inferior cerebellar hemisphere, paramedian right cerebellar vermis, punctate infarcts paramedian right cerebellar hemisphere (bilateral PICA) CTA shows occlusion Left PICA no obvious intracranial atherosclerosis, no dissection Repeat CTH overnight shows no hydrocephalus ECHO: EF 55% no dilation of LA Etiology: likely large artery atherosclerosis of Left PICA, vs. 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 <140/90 DVT ppx PT evaluation pending suggest outpatient monitoring for atrial fibrillation as well would continue to monitor with q4 neuro checks for the next 2 days inhouse due to risk of developing edema from posterior circulation infarcts should he develop any decline in symptoms a STAT Head CT should be obtained to evaluate for obstructive hydrocephalus that would warrant neurosurgical evaluation and possibly intervention please contact me for any change in his neurologic status Problems: Consultation Date/Type/Reason Admit Date/Time August 21, 2016 at 15:16 Date of Consultation: August 23, 2016 Type of Consultation: Neurology Reason for Consultation bilateral cerebellar ischemic stroke Referring Provider: ALAN SCALES Hx of Present Illness 55 year old male active smoker (6 cigarettes/day over the past 25 years) 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 On admission he was evaluated by tele neurologist out of window for any intervention as symptoms began 2 days prior, CTH showed bilateral cerebellar infarcts. CTA was suggested to rule out vertebro-basilar disease, which showed Left PICA occlusion without any large artery atherosclerosis. Imaging has not shown any sign of obstructive hydrocephalus he is now Day 4 from initial symptoms. He reports improved dizziness, has mild left facial weakness with mild ataxia and wide based gait while ambulating, pending PT evaluation. He denies any current headache, no visual disturbances, no dysphagia or focal weakness. ASA 325 mg and Lipitor 80 mg has been initiated as well as BP meds. At home he was not taking any medications. dizziness when ambulating Social History Smoking Status: Never smoker Exam/Review of Systems Vital Signs Vitals Vital Signs Date Time Temp Pulse Resp B/P Pulse Ox O2 Delivery O2 Flow Rate FiO2 08/23/16 08:24 97.9 63 17 110/75 98 08/21/16 18:26 Room Air Intake and Output 08/22/16 08/22/16 08/23/16 15:00 23:00 07:00 Intake Total 800 ml 300 ml Output Total 1500 ml Balance -700 ml 300 ml Exam awake and alert oriented x3 pleasant mood, appropriate affect follows all commands well no aphasia CN: RASHAAD, VFF no nystagmus, V1-3 decreased on left, mild left facial asymmetry palate upgoing uvula midline scm/trap intact tongue midline Motor: no drift equal strength 5/5 throughout Coordination: no FTN ataxia Reflexes 1+ UE, absent KJ and AJ toes are downgoing Gait: wide based mild ataxia with difficulty turning Results Result Diagram: 08/23/16 0620 08/23/16 0620 Results 24 hrs Laboratory Tests Test 08/23/16 06:20 White Blood Count 8.5 Red Blood Count 5.26 Hemoglobin 16.2 Hematocrit 47.8 Mean Corpuscular Volume 90.9 Mean Corpuscular Hemoglobin 30.8 Mean Corpuscular Hemoglobin Concent 33.9 Red Cell Distribution Width 12.3 Platelet Count 301 Mean Platelet Volume 10.1 Neutrophils % 50.8 Lymphocytes % 38.6 Monocytes % 8.2 Eosinophils % 1.2 Basophils % 0.7 Nucleated Red Blood Cells % 0.0 Neutrophils # 4.3 Lymphocytes # 3.3 H Monocytes # 0.7 Eosinophils # 0.1 Basophils # 0.1 Nucleated Red Blood Cells # 0.0 Sodium Level 136 Potassium Level 4.2 Chloride Level 105 Carbon Dioxide Level 25 Anion Gap 10 Blood Urea Nitrogen 15 Creatinine 0.71 Glucose Level 97 Calcium Level 9.2 Magnesium Level 2.2 Medications Medications Current Medications Ondansetron HCl (Zofran Inj) 4 mg Q6H PRN IV NAUSEA AND/OR VOMITING; Start at 19:30 Acetaminophen (Tylenol Tab) 650 mg Q6H PRN PO PAIN LEVEL 1-3 OR FEVER; Start at 19:30 Docusate Sodium (Colace) 100 mg Q12H PRN PO CONSTIPATION; Start 08/21/16 at 19: 30 Zolpidem Tartrate (Ambien) 5 mg QHS PRN PO SLEEP; Start 08/21/16 at 19:30 Enoxaparin Sodium (Lovenox) 40 mg DAILY SC Last administered on 08/23/16 09:37 ; Admin Dose 40 MG; Start 08/22/16 at 09:00 Aspirin (Ecotrin) 325 mg DAILY PO Last administered on 08/23/16 09:33; Admin Dose 325 MG; Start 08/22/16 at 09:00 Atorvastatin Calcium (Lipitor) 80 mg HS PO Last administered on 08/22/16 21:31 ; Admin Dose 80 MG; Start 08/21/16 at 21:00 Amlodipine Besylate (Norvasc) 5 mg DAILY PO Last administered on 08/23/16 09: 33; Admin Dose 5 MG; Start 08/22/16 at 09:00 Hydralazine HCl (Apresoline) 10 mg Q4H PRN IV SBP>180; Start 08/21/16 at 19:30 DON LOZANO MD August 23, 2016 10:50
--- NOTE | 2016-08-23 11:09 | PN ---
Date/Time of Note Date/Time of Note DATE: 08/23/16 TIME: 11:05 Assessment/Plan VTE Prophylaxis VTE Prophylaxis Intervention: LMWH Lines/Catheters IV [facility]from [facility] Saline Lock Assessment/Plan Assessment/Plan 1. Right-sided cerebellar infarct. This occurred approximately 2 days ago according to the patient's onset of symptoms of dizziness and nausea. Brain CTA shows complete occlusion of posterior cerebellar artery Neurology recommends at least 4 day observation in-house as patient is high risk for edema and obstructive hydrocephalus Patient does not want acute rehab, will plan to discharge home tomorrow with home health PT. 2. Mild hypokalemia, replete. 3. Leukocytosis, likely reactive. No indication for antibiotics at this time. 4. Prophylaxis, Lovenox. Subjective 24 Hr Interval Summary Free Text/Dictation Feels much better. Able to ambulate now with walker. Exam/Review of Systems Vital Signs Vitals Vital Signs Date Time Temp Pulse Resp B/P Pulse Ox O2 Delivery O2 Flow Rate FiO2 08/23/16 08:24 97.9 63 17 110/75 98 08/21/16 18:26 Room Air Intake and Output 08/22/16 08/22/16 08/23/16 15:00 23:00 07:00 Intake Total 800 ml 300 ml Output Total 1500 ml Balance -700 ml 300 ml Exam GENERAL: No acute distress, alert and oriented. HEENT: Normocephalic, atraumatic. LUNGS: Clear to auscultation. CARDIOVASCULAR: Regular rate and rhythm. ABDOMEN: Nondistended, nontender, soft. EXTREMITIES: No clubbing, cyanosis, or edema. NEUROLOGIC: No gross focal weakness. Results Result Diagram: 08/23/16 0620 08/23/16 0620 Results 24 hrs Laboratory Tests Test 08/23/16 06:20 White Blood Count 8.5 Red Blood Count 5.26 Hemoglobin 16.2 Hematocrit 47.8 Mean Corpuscular Volume 90.9 Mean Corpuscular Hemoglobin 30.8 Mean Corpuscular Hemoglobin Concent 33.9 Red Cell Distribution Width 12.3 Platelet Count 301 Mean Platelet Volume 10.1 Neutrophils % 50.8 Lymphocytes % 38.6 Monocytes % 8.2 Eosinophils % 1.2 Basophils % 0.7 Nucleated Red Blood Cells % 0.0 Neutrophils # 4.3 Lymphocytes # 3.3 H Monocytes # 0.7 Eosinophils # 0.1 Basophils # 0.1 Nucleated Red Blood Cells # 0.0 Sodium Level 136 Potassium Level 4.2 Chloride Level 105 Carbon Dioxide Level 25 Anion Gap 10 Blood Urea Nitrogen 15 Creatinine 0.71 Glucose Level 97 Calcium Level 9.2 Magnesium Level 2.2 Medications Medications Current Medications Ondansetron HCl (Zofran Inj) 4 mg Q6H PRN IV NAUSEA AND/OR VOMITING; Start at 19:30 Acetaminophen (Tylenol Tab) 650 mg Q6H PRN PO PAIN LEVEL 1-3 OR FEVER; Start at 19:30 Docusate Sodium (Colace) 100 mg Q12H PRN PO CONSTIPATION; Start 08/21/16 at 19: 30 Enoxaparin Sodium (Lovenox) 40 mg DAILY SC Last administered on 08/23/16 09:37 ; Admin Dose 40 MG; Start 08/22/16 at 09:00 Aspirin (Ecotrin) 325 mg DAILY PO Last administered on 08/23/16 09:33; Admin Dose 325 MG; Start 08/22/16 at 09:00 Atorvastatin Calcium (Lipitor) 80 mg HS PO Last administered on 08/22/16 21:31 ; Admin Dose 80 MG; Start 08/21/16 at 21:00 Amlodipine Besylate (Norvasc) 5 mg DAILY PO Last administered on 08/23/16 09: 33; Admin Dose 5 MG; Start 08/22/16 at 09:00 Hydralazine HCl (Apresoline) 10 mg Q4H PRN IV SBP>180; Start 08/21/16 at 19:30 Procedures Procedures PROCEDURE: MR Brain without contrast. CLINICAL INDICATION: 55-year-old male with cerebellar stroke. TECHNIQUE: An MRI of the brain was performed without contrast utilizing the following sequences: Sagittal T1 weighted, sagittal FLAIR, axial T1, axial FLAIR, axial T2 weighted, axial diffusion weighted, axial ADC mapping. Images were reviewed on a PACS workstation. COMPARISON: CT head 08/22/2016, 08/21/2016 FINDINGS: Diffusion weighted sequences demonstrate demonstrate diffusion restriction involving the left inferior cerebellar hemisphere measuring 3.3 x 2.5 cm (axial series image 7). There is also diffusion restriction in the paramedian right cerebellar vermis measuring 12 x 10 mm (axial series image 8) and the posterior paramedian right cerebellar hemisphere measuring 4 and 3 mm respectively (axial series image 7-8). The brainstem is normal in appearance. No supratentorial infarcts are identified. No evidence of hemorrhagic conversion at this time. There is no intracranial hemorrhage, extra-axial fluid collection, mass lesion, midline shift or hydrocephalous. There is baseline of mild prominence of the cerebral sulci, lateral and third ventricles. The basal cisterns are patent. There are mild punctate foci of periventricular and subcortical white matter lesions, likely related to early microangiopathic changes. There is a mild amount of edema involving the infarcts in the bilateral cerebellar hemispheres. Normal flow voids are visible the proximal intracranial arteries and dural sinuses, indicating patency. The midline structures are intact. There are moderate inflammatory changes of the right sphenoid sinus and mild inflammatory changes of the bilateral ethmoid air cells. The mastoid air cells and middle ear cavities are normally aerated. The orbits, calvarium and extracranial soft tissues are normal in appearance. The cerebellopontine angles are normal. No evidence of internal acoustic canal or cerebellopontine angle mass. IMPRESSION: 1. Acute/recent infarct involving the left inferior cerebellar hemisphere, paramedian right cerebellar vermis and punctate infarcts in the peripheral paramedian right cerebellar hemisphere. 2. No intracranial hemorrhage, mass lesion or hydrocephalous. 3. Baseline of mild peripheral and central cerebral volume loss. 4. Mild periventricular and subcortical white matter lesions, likely related to chronic microangiopathic changes. RPTAT: HGAS .Baldomero Simental MD, MD Date Time Electronically viewed and signed by .Baldomero Simental MD, on 08/22/2016 23: 27 .S/ PROCEDURE: CTA Brain. CLINICAL INDICATION: Stroke TECHNIQUE: The study was performed utilizing a multi-slice multidetector CT scanner. Direct spiral 0.65 mm axial sections were obtained through the intracranial vasculature with the use of 100 cc of [id number]-[id number] nonionic intravenous contrast material. Coronal and sagittal MPRs as well as maximal intensity projection reformations were obtained. 3-D MIP images were also reviewed. The images were reviewed on a PACS workstation. The CTDIvol is 54.25, and 30.99 mGy and the DLP is 707.14 mGycm. One or more of the following dose reduction techniques were used: Automated exposure control Adjustment of the mA and/or kV according to patient size. Use of iterative reconstruction technique. COMPARISON: CTA neck 08/21/2016. FINDINGS: Mild calcific plaques are seen involving the supraclinoid ICA bilaterally with no hemodynamically significant stenosis. The anterior cerebral and middle cerebral arteries are patent and normal in caliber. There is occlusion of the left posterior inferior cerebellar artery approximately 1.3 cm distal to its origin. The vertebral arteries, basilar artery, superior cerebellar arteries, and posterior cerebral arteries are normal in appearance. There is approximately 1.5 x 1.6 mm triangular-shaped outpouching off of the posterior aspect of the right ICA terminus likely representing infundibulum. No vascular malformation is seen. IMPRESSION: 1. 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 2. No significant atherosclerotic plaque in the posterior circulation arteries. No dissection. 3. Minimal atherosclerotic calcifications of bilateral supraclinoid ICA with no hemodynamically significant stenosis. 4. Tiny outpouching off the right posterior supraclinoid ICA most consistent with an infundibulum. RPTAT: BB .Bushra Mtz MD, Date Time Electronically viewed and signed by .Bushra Mtz MD, MD on 08/23/2016 08:29 .O/ CC: ALAN SCALES. PROCEDURE: US bilateral lower extremity veins. CLINICAL INDICATION: Bilateral leg pain and swelling. TECHNIQUE: Multiple longitudinal and transverse images of the bilateral lower extremity veins were obtained with gonzales scale and color Doppler imaging. The common femoral vein, femoral vein, and popliteal vein were evaluated. 2D grayscale measurements with compression sonography, color Doppler, and pulsed Doppler with augmentation. COMPARISON: No prior studies are available for comparison. FINDINGS: The bilateral common femoral, femoral and popliteal veins are normally compressible throughout. Color flow demonstrates normal filling of the vessels. Normal waveforms are visualized and there is normal response to augmentation. IMPRESSION: 1. No evidence of deep vein thrombosis involving either lower extremity. RPTAT: QQ .Raul Gandhi MD, MD Date Time Electronically viewed and signed by .Raul Gandhi MD, on 08/22/2016 16:13 .R/ CC: ALAN SCALES BOLATITO M. August 23, 2016 11:09
[2016-08-23] MEDS: ATORVASTATIN 80 MG TAB PO SCH (20:25)
[2016-08-24] VITALS (11 sets, daily range): BP systolic 114–152; BP diastolic 66–90; PULSE 62–83; RESP 17–18
[2016-08-24 08:05] LABS: ADD SCAN DIFF NO
[2016-08-24 08:08] LABS: BASOPHIL # 0.1 10^3/ul (0.0-0.1); BASOPHILS % 0.5 % (0.0-2.0); EOSINOPHILS # 0.1 10^3/ul (0.0-0.5); EOSINOPHILS % 1.3 % (0.0-7.0); HEMATOCRIT 51.2 % (42.0-52.0); HEMOGLOBIN 17.2 g/dl (14.0-18.0); LYMPHOCYTES # 2.8 10^3/ul (0.8-2.9); LYMPHOCYTES % 28.9 % (15.0-51.0); MEAN CORPUSCULAR HEMOGLOBIN 30.5 pg (29.0-33.0); MEAN CORPUSCULAR HGB CONC 33.6 g/dl (32.0-37.0); MEAN CORPUSCULAR VOLUME 90.8 fl (82.0-101.0); MEAN PLATELET VOLUME 10.2 fl (7.4-10.4); MONOCYTE # 0.7 10^3/ul (0.3-0.9); MONOCYTES % 7.5 % (0.0-11.0); NEUTROPHIL # 5.9 10^3/ul (1.6-7.5); NEUTROPHILS % 61.4 % (39.0-77.0); PLATELET COUNT 260 10^3/UL (140-415); RED BLOOD COUNT 5.64 10^6/ul (4.70-6.10); RED CELL DISTRIBUTION WIDTH 12.3 % (11.5-14.5); WHITE BLOOD COUNT 9.6 10^3/ul (4.8-10.8)
[2016-08-24 08:31] LABS: POTASSIUM 4.8 mmol/L (3.5-5.1)
[2016-08-24 08:34] LABS: CREATININE 0.71 mg/dl (0.61-1.24)
[2016-08-24 08:35] LABS: CALCIUM 9.4 mg/dl (8.4-10.2)
[2016-08-24] MEDS: ASPIRIN (EC) 325 MG TAB PO SCH (08:43)
[2016-08-24] MEDS: AMLODIPINE 5 MG TAB PO SCH (08:44)
[2016-08-24] MEDS: ENOXAPARIN 40 MG/0.4 ML SYG SC SCH (08:57)
--- NOTE | 2016-08-24 12:05 | PN ---
Date/Time of Note Date/Time of Note DATE: 08/24/16 TIME: 12:03 Assessment/Plan VTE Prophylaxis VTE Prophylaxis Intervention: ambulation, SCD's Lines/Catheters IV Catheter Type (from Nrs): Saline Lock Assessment/Plan Assessment/Plan Assessment/Plan 1. Right-sided cerebellar infarct. This occurred approximately 2 days ago according to the patient's onset of symptoms of dizziness and nausea. Brain CTA shows complete occlusion of posterior cerebellar artery Neurology recommends at least 4 day observation in-house as patient is high risk for edema and obstructive hydrocephalus Patient does not want acute rehab, will plan to discharge home tomorrow with home health PT. 2. Mild hypokalemia, replete. 3. Leukocytosis, likely reactive. No indication for antibiotics at this time. 4. Prophylaxis, Lovenox. Subjective 24 Hr Interval Summary Free Text/Dictation Continues to do well, is very mildly unsteady with ambulation without walker, mildly ataxic, no new complaints. Exam/Review of Systems Vital Signs Vitals Vital Signs Date Time Temp Pulse Resp B/P Pulse Ox O2 Delivery O2 Flow Rate FiO2 08/24/16 11:34 98.4 68 18 114/66 99 08/21/16 18:26 Room Air Intake and Output 08/23/16 08/23/16 08/24/16 15:00 23:00 07:00 Intake Total 850 ml 800 ml Balance 850 ml 800 ml Exam GENERAL: No acute distress, alert and oriented. HEENT: Normocephalic, atraumatic. LUNGS: Clear to auscultation. CARDIOVASCULAR: Regular rate and rhythm. ABDOMEN: Nondistended, nontender, soft. EXTREMITIES: No clubbing, cyanosis, or edema. NEUROLOGIC: No gross focal weakness Results Result Diagram: 08/24/16 0715 08/24/16 0715 Results 24 hrs Laboratory Tests Test 08/24/16 07:15 White Blood Count 9.6 Red Blood Count 5.64 Hemoglobin 17.2 Hematocrit 51.2 Mean Corpuscular Volume 90.8 Mean Corpuscular Hemoglobin 30.5 Mean Corpuscular Hemoglobin Concent 33.6 Red Cell Distribution Width 12.3 Platelet Count 260 Mean Platelet Volume 10.2 Neutrophils % 61.4 Lymphocytes % 28.9 Monocytes % 7.5 Eosinophils % 1.3 Basophils % 0.5 Nucleated Red Blood Cells % 0.0 Neutrophils # 5.9 Lymphocytes # 2.8 Monocytes # 0.7 Eosinophils # 0.1 Basophils # 0.1 Nucleated Red Blood Cells # 0.0 Sodium Level 136 Potassium Level 4.8 Chloride Level 102 Carbon Dioxide Level 24 Anion Gap 15 Blood Urea Nitrogen 13 Creatinine 0.71 Glucose Level 89 Calcium Level 9.4 Medications Medications Current Medications Ondansetron HCl (Zofran Inj) 4 mg Q6H PRN IV NAUSEA AND/OR VOMITING; Start at 19:30 Acetaminophen (Tylenol Tab) 650 mg Q6H PRN PO PAIN LEVEL 1-3 OR FEVER; Start at 19:30 Docusate Sodium (Colace) 100 mg Q12H PRN PO CONSTIPATION; Start 08/21/16 at 19: 30 Enoxaparin Sodium (Lovenox) 40 mg DAILY SC Last administered on 08/24/16 08:57 ; Admin Dose 40 MG; Start 08/22/16 at 09:00 Aspirin (Ecotrin) 325 mg DAILY PO Last administered on 08/24/16 08:43; Admin Dose 325 MG; Start 08/22/16 at 09:00 Atorvastatin Calcium (Lipitor) 80 mg HS PO Last administered on 08/23/16 20:25 ; Admin Dose 80 MG; Start 08/21/16 at 21:00 Amlodipine Besylate (Norvasc) 5 mg DAILY PO Last administered on 08/24/16 08: 44; Admin Dose 5 MG; Start 08/22/16 at 09:00 Hydralazine HCl (Apresoline) 10 mg Q4H PRN IV SBP>180; Start 08/21/16 at 19:30 ALAN SCALES August 24, 2016 12:05
--- NOTE | 2016-08-24 12:46 | CONS ---
Date/Time of Note Date/Time of Note DATE: 08/24/16 TIME: 12:44 Consult Date/Type/Reason Admit Date/Time August 21, 2016 at 15:16 Initial Consult Date 08/23/16 Type of Consultation: Neurology Reason for Consultation bilateral cerebellar stroke Ordering Provider: ALAN SCALES Subjective gait is improved, feels more steady able to ambulate without dizziness Objective Vital Signs Date Time Temp Pulse Resp B/P Pulse Ox O2 Delivery O2 Flow Rate FiO2 08/24/16 12:28 83 08/24/16 11:34 98.4 18 114/66 99 08/21/16 18:26 Room Air Intake and Output 08/23/16 08/23/16 08/24/16 15:00 23:00 07:00 Intake Total 850 ml 800 ml Balance 850 ml 800 ml Exam awake and alert oriented x3 pleasant mood, appropriate affect follows all commands well no aphasia CN: RASHAAD, VFF no nystagmus, V1-3 decreased on left, mild left facial asymmetry palate upgoing uvula midline scm/trap intact tongue midline Motor: no drift equal strength 5/5 throughout Coordination: no FTN ataxia Reflexes 1+ UE, absent KJ and AJ toes are downgoing Gait: wide based ambulating well with turn intact Results/Medications Result Diagram: 08/24/1615 08/24/1615 Results 24 hrs Laboratory Tests Test 08/24/16 07:15 White Blood Count 9.6 Red Blood Count 5.64 Hemoglobin 17.2 Hematocrit 51.2 Mean Corpuscular Volume 90.8 Mean Corpuscular Hemoglobin 30.5 Mean Corpuscular Hemoglobin Concent 33.6 Red Cell Distribution Width 12.3 Platelet Count 260 Mean Platelet Volume 10.2 Neutrophils % 61.4 Lymphocytes % 28.9 Monocytes % 7.5 Eosinophils % 1.3 Basophils % 0.5 Nucleated Red Blood Cells % 0.0 Neutrophils # 5.9 Lymphocytes # 2.8 Monocytes # 0.7 Eosinophils # 0.1 Basophils # 0.1 Nucleated Red Blood Cells # 0.0 Sodium Level 136 Potassium Level 4.8 Chloride Level 102 Carbon Dioxide Level 24 Anion Gap 15 Blood Urea Nitrogen 13 Creatinine 0.71 Glucose Level 89 Calcium Level 9.4 Medications Current Medications Ondansetron HCl (Zofran Inj) 4 mg Q6H PRN IV NAUSEA AND/OR VOMITING; Start at 19:30 Acetaminophen (Tylenol Tab) 650 mg Q6H PRN PO PAIN LEVEL 1-3 OR FEVER; Start at 19:30 Docusate Sodium (Colace) 100 mg Q12H PRN PO CONSTIPATION; Start 08/21/16 at 19: 30 Enoxaparin Sodium (Lovenox) 40 mg DAILY SC Last administered on 08/24/16 08:57 ; Admin Dose 40 MG; Start 08/22/16 at 09:00 Aspirin (Ecotrin) 325 mg DAILY PO Last administered on 08/24/16 08:43; Admin Dose 325 MG; Start 08/22/16 at 09:00 Atorvastatin Calcium (Lipitor) 80 mg HS PO Last administered on 08/23/16 20:25 ; Admin Dose 80 MG; Start 08/21/16 at 21:00 Amlodipine Besylate (Norvasc) 5 mg DAILY PO Last administered on 08/24/16 08: 44; Admin Dose 5 MG; Start 08/22/16 at 09:00 Hydralazine HCl (Apresoline) 10 mg Q4H PRN IV SBP>180; Start 08/21/16 at 19:30 Assessment/Plan Chief Complaint/Hosp Course 55 year old male with bilateral cerebellar stroke Day 4 from onset of symptoms, no evidence of obstructive hydrocephalus. MRI Brain w/o contrast: acute infarct left inferior cerebellar hemisphere, paramedian right cerebellar vermis, punctate infarcts paramedian right cerebellar hemisphere (bilateral PICA) CTA shows occlusion Left PICA no obvious intracranial atherosclerosis, no dissection Repeat CTH overnight shows no hydrocephalus ECHO: EF 55% no dilation of LA Etiology: likely large artery atherosclerosis of Left PICA, vs. 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 Lopez Problems: DON LOZANO MD August 24, 2016 12:46
[2016-08-24] MEDS: ATORVASTATIN 80 MG TAB PO SCH (20:57)
[2016-08-25] VITALS (8 sets, daily range): BP systolic 104–127; BP diastolic 63–78; PULSE 66–79; RESP 18–19
[2016-08-25] MEDS: AMLODIPINE 5 MG TAB PO SCH (08:15)
[2016-08-25] MEDS: ASPIRIN (EC) 325 MG TAB PO SCH (08:15)
[2016-08-25] MEDS: ENOXAPARIN 40 MG/0.4 ML SYG SC SCH (08:16)
[2016-08-25 08:19] LABS: ADD SCAN DIFF NO
[2016-08-25 08:38] LABS: BASOPHILS % 0.3 % (0.0-2.0); EOSINOPHILS # 0.1 10^3/ul (0.0-0.5); EOSINOPHILS % 1.4 % (0.0-7.0); HEMATOCRIT 49.3 % (42.0-52.0); HEMOGLOBIN 17.2 g/dl (14.0-18.0); LYMPHOCYTES # 2.5 10^3/ul (0.8-2.9); LYMPHOCYTES % 28.1 % (15.0-51.0); MEAN CORPUSCULAR HEMOGLOBIN 31.2 pg (29.0-33.0); MEAN CORPUSCULAR HGB CONC 34.9 g/dl (32.0-37.0); MEAN CORPUSCULAR VOLUME 89.3 fl (82.0-101.0); MEAN PLATELET VOLUME 10.5 fl (7.4-10.4); MONOCYTE # 0.7 10^3/ul (0.3-0.9); NEUTROPHIL # 5.5 10^3/ul (1.6-7.5); NEUTROPHILS % 61.5 % (39.0-77.0); PLATELET COUNT 267 10^3/UL (140-415); RED BLOOD COUNT 5.52 10^6/ul (4.70-6.10); WHITE BLOOD COUNT 8.9 10^3/ul (4.8-10.8)
[2016-08-25 09:05] LABS: POTASSIUM 4.1 mmol/L (3.5-5.1)
[2016-08-25 09:08] LABS: CALCIUM 9.2 mg/dl (8.4-10.2); CREATININE 0.67 mg/dl (0.61-1.24)
[2016-08-25] MEDS ORDERED: ATOR80TA75 PO (12:35)
[2016-08-25] MEDS ORDERED: AMLO-145 PO (12:35)
[2016-08-25] MEDS ORDERED: ASPI325T32 PO (12:35)
--- NOTE | 2016-08-25 12:35 | PDOCDIS ---
Discharge Instructions DIAGNOSIS Discharge Diagnosis: Acute ischemic stroke. CONDITION Patient Condition: Stable HOME CARE INSTRUCTIONS: Diet Instructions: Low Fat /Cholesterol FOLLOW UP/APPOINTMENTS Appointments Shanita Lopez MD Specialty: Neurology Office Address: [address] [address] [address] [place] [id number] Office OTHER ORDERS: Other Orders: 1. Take medications as per prescription. 2. Follow a low-cholesterol diet. 3. Resume activities as tolerated. 4. Follow-up with neurology [Dr. Lopez] in 2 weeks. Please call for appointment. 5. Please call 911 or go to the nearest emergency room if you have any sudden onset of focal weakness, new onset speech disturbances, or any other unusual signs/symptoms. JUNIOR SHANNON NP August 25, 2016 12:34
--- NOTE | 2016-08-25 14:19 | DS ---
DATE OF ADMISSION: 08/21/2016 DATE OF DISCHARGE: 08/25/2016 FINAL DIAGNOSES: 1. Bilateral cerebral stroke. 2. Dyslipidemia, with suboptimal LDL. 3. Nicotine use. CONSULTATIONS: Dr. Minal Good, Neurology. HOSPITAL COURSE: This is a 55-year-old male with no significant past medical history, who came to the emergency room with a chief complaint of nausea, vomiting, and dizziness. The patient was unable to ambulate secondary to dizziness. In the emergency room the patient underwent a brain CT scan that showed a right cerebellar infarct. Provided the patient's history of present illness and the diagnostic findings, a clinical decision was made to admit the patient to the inpatient setting to have him further evaluated. The patient was admitted to inpatient telemetry floor. The patient was started on aspirin and Lipitor. A neurology consult was called on this patient. The patient underwent a brain MRI that showed an acute infarct involving the left inferior cerebellar hemisphere, paramedian right cerebellar vermis and punctate infarcts in the peripheral paramedian, right cerebellar hemisphere. There was no evidence of any intracranial hemorrhage, mass lesion or hydrocephalus. Neurology recommended to continue the patient on aspirin and high dose statins. The patient underwent further extensive workup, including a neck CTA that was negative for any significant carotid artery stenosis. The patient was also complaining of some abdominal pain and the patient also had some nausea and vomiting upon presentation. The patient underwent a CT scan of the abdomen and pelvis that was negative for any acute intra-abdominal findings. However, it showed some prostatic enlargement and a small fat containing left inguinal hernia. The patient was also noticed to have some dyslipidemia, with suboptimal LDL (109). The patient was seen and evaluated by physical therapy. Physical therapy recommended a front-wheel walker upon discharge and this was ordered. The patient was kept in the hospital, as per neurology, because of the risk of cerebral edema from stroke until day 3 to 5. However, the patient had no evidence of any worsening cerebral edema or other new onset of neurologic symptoms. Hence, the patient was cleared by neurology to be discharged home. DISCHARGE DISPOSITION AND PLAN: The patient will be discharged home today. The patient was instructed to take medications as per prescription. He was instructed to follow a low cholesterol diet. The patient was instructed to resume activities as tolerated. The patient was instructed to follow up with Dr. Lopez in 2 weeks and to please call for appointment. The patient was instructed to call 911 or go to the nearest emergency room if he has any sudden onset of focal weakness, any speech disturbances or any other unusual signs or symptoms. The patient verbalized understanding of the discharge instructions. CONDITION AT DISCHARGE: Stable. DISCHARGE MEDICATIONS 1. Amlodipine 5 mg p.o. daily. 2. Aspirin 325 mg p.o. daily. 3. Atorvastatin 80 mg p.o. at bedtime. PERTINENT LABORATORY AND DIAGNOSTIC DATA: 1. 2-D echocardiogram. Ejection fraction of 55%. No significant valvular stenosis or regurgitation. Estimated peak systolic pressure of 18 mmHg. 2. Carotid Doppler study. No evidence of hemodynamically significant carotid stenosis. 3. Brain CT scan. Patchy left upper lobe hypodensities, and small right cerebellar hypodensity suggestive of infarct which may be recent. 4. CT scan of the abdomen and pelvis. No evidence of renal or ureteral calculi or hydronephrosis. No evidence of bowel obstruction or inflammation. No evidence of appendicitis. There is diffuse diverticulosis without diverticulitis. Atherosclerotic disease is present. Prostatic enlargement. Small fat-containing left inguinal hernia. 5. Neck CTA. No significant stenosis is identified. 6. Head CTA. Occlusion of the left posterior inferior cerebellar artery. Tiny outpouching of the right posterior supraclinoid ICA most consistent with infundibulum. 7. Bilateral lower extremity venous Doppler study. No evidence of DVT. 8. Brain MRI. Acute/recent infarct involving the left inferior cerebellar hemisphere, paramedian right cerebellar vermis, and punctate infarcts in the peripheral paramedian right cerebellar hemisphere. No intracranial hemorrhage, mass lesion or hydrocephalus. 9. Latest CBC: WBC 8.9, hemoglobin 17.2, hematocrit 49.3, platelet count 267. 10. Latest BMP: Sodium 137, potassium 4.1, chloride 101, carbon dioxide 23, anion gap 17, BUN 40, creatinine 0.6, glucose 90, calcium 9.3. 11. Hemoglobin A1c 5.6. 12. Fasting lipid panel: Triglycerides 106, total cholesterol 175, LDL 109 and AST of 45. At this time, I would like to thank Dr. Good for seeing the patient and providing clinical recommendations. The case and management of this patient was fully discussed with Dr. Scales. Approximately 35 minutes was spent on coordinating the discharge on this patient. JUNIOR SCALES MD AM/NTS Conf#: [id number] [facility]#: [id number] MTDD
== END 2016-08-25 15:55 | disposition home or self-care (01) | DRG 66 ==
LOC: E/R 11:13 → TEL 15:16
PROVIDERS: ADMIT Internal Medicine; ATTEND Internal Medicine
DX: I63.543 Cerebral infarction due to unspecified occlusion or stenosis of bilateral cerebellar arteries (principal); E87.6 Hypokalemia; F17.200 Nicotine dependence, unspecified, uncomplicated; R29.810 Facial weakness; R27.0 Ataxia, unspecified
CPT/HCPCS: 36415; 70450; 70496; 70498; 70551; 74176; 80048; 80053; 80061; 83036; 83690; 83735; 84100; 84484; 85025; 85610; 93005; 93306; 93880; 93970; 96361; 96374; 96375; 97116; 97162; 97530; J1650; J2270; J2405; J7030; Q9967